=== PATIENT | female | born 1935 ===

== ENCOUNTER 2017-05-26 07:02 | Day surgery (SDC) | payer MEDICARE, MEDICAID ==
[2017-05-26 07:39] VITALS: BMI 28.4
[2017-05-26] MEDS ORDERED: Phenylephrine 10 mg/ml Inj ONE (08:21)
[2017-05-26] MEDS ORDERED: Propofol 10 mg/ml Inj (20 ML) ONE ×3 (08:21→09:24)
[2017-05-26] MEDS ORDERED: Etomidate 20 mg/10ml Inj IV ONE (08:21)
[2017-05-26] MEDS ORDERED: Lactated Ringer's 500 ML IV ONE ×2 (08:33)
--- NOTE | 2017-05-26 08:39 | CP.SDSHP ---
Same Day Surgery H & P - History Proposed Procedure: Screening Colonoscopy, EGD Pre-Op Diagnosis: Screening for colon cancer, anemia, dyspepsia - Previous Medical/Surgical History Cardiac: Hypertension Previous Surgical History: Appendenctomy, left nephrectomy - Allergies Allergies: Allergies Penicillins Allergy (Verified 05/26/17 07:34) RASH - Current Medications Current Medications: See reconciliation sheet - Physical Exam General Appearance: WD WN female in NAD Vital Signs: Vital Signs 05/26/17 07:38 Temperature 97 F L Pulse Rate 65 Respiratory 19 Rate Blood Pressure 141/59 L O2 Sat by Pulse 97 Oximetry Mental Status: Alert & Oriented x3 Neuro: WNL Heart: WNL Lungs: WNL GI: WNL - {Optional Preform as Required} Abdomen: WNL - Impression Impression: Screening for colon cancer, anemia, dyspepsia - Date & Time Date: 05/26/17 Time: 08:39 Short Stay Discharge - Short Stay Discharge Admitting Diagnosis/Reason for Visit: DYSPEPSIA / ANEMIA Disposition: HOME/ ROUTINE
[2017-05-26 10:11] VITALS: TEMP 98
[2017-05-26 10:18] VITALS: O2SAT 99
[2017-05-26 10:29] VITALS: RESP 16
[2017-05-26 10:52] VITALS: BP 110/58; PULSE 61
== END 2017-05-26 10:50 | disposition home or self-care (01) ==
LOC: C.ENDO 07:02
PROVIDERS: ATTEND Internal Medicine Gastroenterology
DX: D12.3 Benign neoplasm of transverse colon (principal); D50.9 Iron deficiency anemia, unspecified; I10 Essential (primary) hypertension; K57.30 Diverticulosis of large intestine without perforation or abscess without bleeding; K29.50 Unspecified chronic gastritis without bleeding; B96.81 Helicobacter pylori [H. pylori] as the cause of diseases classified elsewhere
CPT/HCPCS: 43239; 45388; 88305; J0171; J2001; J2370; J2405; J2704; J7120